=== PATIENT | female | born 1940 | race Caucasian/White ===

== ENCOUNTER 2020-03-24 10:46 | Emergency (ER) | payer MEDICARE, BC ==
--- NOTE | 2020-03-24 12:15 | CT ---
CT BRAIN WITHOUT CONTRAST: HISTORY: Headache and hypertension, altered mental status. COMPARISON: None. FINDINGS: There are changes of cortical atrophy and chronic small-vessel ischemic disease. The ventricular siz e is appropriate and the basilar cisterns are patent. No evidence of acute infarct, hemorrhage, midline shift, or abnormal extraaxial fluid collections are seen. The bony calvarium is intact. The visualized paranasal sinuses and mastoid air cells are wel l aerated. IMPRESSION: No CT evidence of acute intracranial process. POS: OFF
[2020-03-24 12:20] LABS: #Eosinphils 0.2 thou/uL (0.0-0.7); #Lymphocytes 1.4 thou/uL (1.20-3.40); #Monocytes 0.4 thou/uL (0.11-0.59); #Neutrophils 5.1 thou/uL (1.40-6.50); %Basophils 0.3 % (0.0-1.0); %Eosinophils 2.4 % (0.0-10.0); %Lymphocytes 19.8 % (21.0-51.0); %Monocytes 5.3 % (0.0-10.0); %Neutrophils 72.2 % (42.0-75.0); Hemoglobin 12.3 g/dL (12.0-16.0); Mean Corpuscular HGB CONC 32.1 g/dL (32.0-36.0); Mean Corpuscular Hemoglobin 27.9 pg (27.0-31.0); Mean Platelet Volume 8.6 fL (7.4-10.4); Platelet Count 299 thou/uL (130-400); RBC Distribution Width 16.4 % (11.5-14.5); Red Blood Cell (RBC) Count 4.39 mill/uL (4.20-5.40); White Blood Cell (WBC) Count 7.1 thou/uL (4.8-10.8)
[2020-03-24 12:41] LABS: ALT (SGPT) Less than 7 U/L (8-55); AST (SGOT) 12 U/L (5-34); Albumin 3.4 g/dL (3.4-4.8); Alkaline Phosphatase 30 U/L (40-110); Anion Gap 11 mmol/L (10-20); BUN (Urea Nitrogen) 10 mg/dL (9.8-20.1); Bilirubin, Total 0.6 mg/dL (0.2-1.2); Calc. Creatinine Clearance 0 mL/min (70-130); Calcium 9.1 mg/dL (7.8-10.44); Carbon Dioxide 28 mmol/L (23-31); Chloride 102 mmol/L (98-107); Estimated GFR-MDRD 67; Globulin 3.1 g/dL (2.4-3.5); Glucose 102 mg/dL (83-110); Magnesium 1.8 mg/dL (1.6-2.6); Potassium 3.9 mmol/L (3.5-5.1); Protein, Total 6.5 g/dL (6.0-8.3); Sodium 137 mmol/L (136-145)
[2020-03-24 13:00] LABS: Bilirubin Negative (Negative); Blood, Urine Negative (Negative); Clarity Clear (Clear); Glucose, Urine (Dipstick) Normal (Negative); Ketone, Urine Negative (Negative); Leukocyte Negative Leu/uL (Negative); Nitrite Negative (Negative); Protein, Urine (Dipstick) Negative (Neg-Trace); Specific Gravity, Urine 1.012 (1.002-1.036); Urobilinogen 3 mg/dL (Less than 2)
--- NOTE | 2020-03-26 14:14 | EKG ---
Test Reason : Blood Pressure : / mmHG Vent. Rate : 060 BPM Atrial Rate : 060 BPM P-R Int : 180 ms QRS Dur : 088 ms QT Int : 444 ms P-R-T Axes : 062 049 137 degrees QTc Int : 444 ms Normal sinus rhythm Nonspecific ST and T wave abnormality Abnormal ECG Confirmed by JOSE SMITH, JOSHUA ([id number]), greeting card editor VAZQUEZ MCCLAIN ([id number]) on 03/26/2020 2:13:54 PM Referred By: Confirmed By:JOSHUA GARCIA MD
== END 2020-03-24 14:05 | disposition home or self-care (01) ==
LOC: ERS 10:46
DX: G30.9 Alzheimer's disease, unspecified (principal); F02.80 Dementia in other diseases classified elsewhere, unspecified severity, without behavioral disturbance, psychotic disturbance, mood disturbance, and anxiety; I10 Essential (primary) hypertension
CPT/HCPCS: 36415; 70450; 80053; 81003; 83735; 84443; 85025; 93005

== ENCOUNTER 2020-03-28 12:14 | Inpatient (IN) | payer MEDICARE, BC ==
[2020-03-28] MEDS ORDERED: EPINEPHrine 1 MG/10 ML Abboject SYRINGE ONE ×3 (12:19→14:01)
[2020-03-28] MEDS ORDERED: Cefepime 2 GM VIAL ONE (12:26)
[2020-03-28] MEDS ORDERED: Vancomycin 1.5 GRAM/300 ML BAG 1.5 GM in Premix Bag 1 BAG IVPB SCH (12:45)
--- NOTE | 2020-03-28 12:47 | RAD ---
XR Chest 1 View Portable HISTORY: Respiratory failure COMPARISON: None FINDINGS: The heart size is normal. The aorta is tortuous. There is an endotracheal tube with tip just below t he level of the clavicular heads. The lungs are well expanded without focal areas of consolidation or pleural effusions. There is suggestion of a small right pneumothorax. Discussed over the telephone with ER physician Dr. Kerri Palmer at 12:43 PM
[2020-03-28 13:01] LABS: Actual Bicarbonate (HCO3a) 13.2 mEq/L (22-28); Analyzer IN Cardio ER; Base Excess (BEa) -18.6 mEq/L (-2.0 to +3.0); Calcium, Ionized (arterial) 1.09 mmol/L (1.12-1.30); Carboxyhemoglobin (COHb) 0.6 gm% (0.0-3.0); Hemoglobin (Hb) 10.8 g/dL (12.0-16.0); O2 Tension (PaO2), arterial 195.5 mmHg (> 70.0); Potassium - ABG Lab 4.13 mmol/L (3.70-5.30)
[2020-03-28 13:19] LABS: ALV-art Gradient 156.925 (0-20); CO2 Tension 60.3 mmHg (35.0-45.0); Puncture Site RRA; pH, Arterial 6.96 (7.35-7.45)
[2020-03-28 13:21] LABS: Hemoglobin 10.2 g/dL (12.0-16.0); Mean Corpuscular Hemoglobin 27.2 pg (27.0-31.0); Mean Corpuscular Volume 90.8 fL (78.0-98.0); Mean Platelet Volume 8.2 fL (7.4-10.4); Platelet Count 197 thou/uL (130-400); RBC Distribution Width 16.3 % (11.5-14.5); Red Blood Cell (RBC) Count 3.75 mill/uL (4.20-5.40); White Blood Cell (WBC) Count 20.6 thou/uL (4.8-10.8)
[2020-03-28] MEDS ORDERED: Norepinephrine 8 MG/0.9% NS 250 ML ONE (13:26)
[2020-03-28 13:44] LABS: ALT (SGPT) 110 U/L (8-55); AST (SGOT) 210 U/L (5-34); Albumin 2.4 g/dL (3.4-4.8); Alkaline Phosphatase 57 U/L (40-110); Anion Gap 28 mmol/L (10-20); BUN (Urea Nitrogen) 10 mg/dL (9.8-20.1); Bilirubin, Total 0.5 mg/dL (0.2-1.2); Calc. Creatinine Clearance 0 mL/min (70-130); Calcium 7.6 mg/dL (7.8-10.44); Carbon Dioxide 10 mmol/L (23-31); Chloride 109 mmol/L (98-107); Estimated GFR-MDRD 47; Globulin 2.4 g/dL (2.4-3.5); Glucose 292 mg/dL (83-110); Potassium 4.3 mmol/L (3.5-5.1); Protein, Total 4.8 g/dL (6.0-8.3); Sodium 143 mmol/L (136-145)
[2020-03-28 13:57] LABS: Band 21 % (5-11); Hypochromia SLIGHT = 6-15 cells (100X) (0-5/hpf); Lymphocytes 19 % (21-51); MDiff Complete? YES; Monocytes 1 % (0-10); Neutrophil 56 % (42-75); Ovalocytes SLIGHT = 2-5 cells (100X) (0-1/hpf); Platelet Morphology Comment Appears Adequate; Polychromasia SLIGHT = 2-3 cells (100X) (0-2/hpf); Reactive Lymphocytes 3 % (0-10); Target Cells SLIGHT = 2-5 cells (100X) (0-1/hpf)
[2020-03-28] MEDS ORDERED: EPINEPHrine 1 MG/ML AMP ONE (14:00)
[2020-03-28 14:06] LABS: CKMB 7.4 ng/mL (0-6.6)
[2020-03-28 14:18] LABS: SARS-CoV-2 NAA Rapid Test Not Detected (NotDetected)
[2020-03-28] MEDS ORDERED: Iopamidol-370 76% 500 ML 1 ML ONE (14:18)
[2020-03-28 14:27] LABS: Bilirubin Negative (Negative); Blood, Urine 2+ (Negative); Clarity Turbid (Clear); Glucose, Urine (Dipstick) Normal (Negative); Ketone, Urine Negative (Negative); Leukocyte Negative Leu/uL (Negative); Nitrite Negative (Negative); Protein, Urine (Dipstick) Negative (Neg-Trace); RBC/HPF 21-50 HPF (0-3); Specific Gravity, Urine 1.006 (1.002-1.036); Squamous Epithelial 0-3 HPF (0-3); Urobilinogen Normal mg/dL (Less than 2); WBC/HPF 0-3 HPF (0-3); pH, Urine 7.5 (5.0-9.0)
[2020-03-28 14:29] LABS: Bacteria/HPF 1+ HPF (None Seen)
[2020-03-28 14:36] LABS: Amphetamine Not Detected (NotDetected); Barbiturates Screen Not Detected (NotDetected); Benzodiazepine Screen Not Detected (NotDetected); Cocaine Metabolite Screen Not Detected (NotDetected); Medtox Control Line Valid? VALID (VALID); Medtox Reader # READER 1; Methadone Not Detected (NotDetected); Methamphetamine Not Detected (NotDetected); Opiate Screen Not Detected (NotDetected); Oxycodone Screen Not Detected (NotDetected); Phencyclidine (PCP) Not Detected (NotDetected); THC/Cannabinoid Screen Not Detected (NotDetected); Tricyclic Screen Not Detected (NotDetected)
--- NOTE | 2020-03-28 14:36 | CT ---
CTA Angio Chest W WO Con 03/28/2020 12:54 PM Indication: 79-year-old female status post CPR and altered mental status Technique: Multiple CTA images were obtained of the thorax with IV contrast. 3-D rendering: MIP anika nstructed images were created and reviewed. Comparison: No relevant prior studies available. Findings: Pulmonary arteries: Small suspected motion artifact is seen within the distal main pulmonary artery and proximal right main pulmonary artery. No definite pulmonary embolus is seen within the central segmental pulmonary arterial tree. Heart and Aorta: There are prominent consultations involving thoracic aorta and coronary arteries. Mediastinum:Patient is intubated with gastric catheter placement. Lungs:There are areas of subsegmental volume loss involving both lower lobes as well as portions of t he left upper lobe. Small 4 mm pulmonary nodule seen within the right upper lobe. Pleural space: There is a moderate to large right-sided hydropneumothorax. Upper Abdomen: Small amount of pneumobilia is seen within the left hepatic lobe. There is a prominen t endovascular graft in place involving the abdominal aorta with the proximal abdominal aorta measuring up to 6.3 cm. Osseous Structures: There are anterolateral right second through sixth rib fractures. There is a sof t tissue contusion overlying the anterolateral right chest wall near the right third and fourth rib fractures. There is a minimally displaced anterior lateral left fifth rib fracture. There is scattere d degenerative and osteoarthritic change present. There is gas present within the medullary space of the proximal humerus bilaterally possibly related to attempts at intraosseous vascular access plac ement. Soft tissues:No abnormality. Other findings:None. Impression: 1. No central or segmental pulmonary embolus. 2. Moderate to large right-sided hydropneumothorax. 3. Multiple right-sided rib fractures (anterolateral right second through sixth ribs). Minimally disp laced anterolateral left fifth rib fracture. 4. Nonspecific mild pneumobilia within the left hepatic lobe. 5. Findings called to Dr. Palmer at 2:30 PM on March 28, 2020
--- NOTE | 2020-03-28 14:51 | CT ---
CT CERVICAL SPINE 03/28/20 PROVIDED CLINICAL HISTORY: Altered mental status. 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 There is extensive multilevel cervical degenerative change. There is no evidence for fracture or traumatic subluxation. Partially v isualized right pneumothorax as noted on recently performed chest radiograph. There is no prevertebra l soft tissue swelling apparent. Partially visualized endotracheal and enteric catheters. IMPRESSION: 1. No evidence for fracture or traumatic subluxation. 2. Right pneumothorax. POS: AH
[2020-03-28 14:54] LABS: INR-International Normal Ratio 3.6; Prothrombin Time 35.8 sec (12.0-14.7)
--- NOTE | 2020-03-28 14:54 | CT ---
CT BRAIN WITHOUT CONTRAST: HISTORY: Altered mental status. FINDINGS: Comparison is made with the exam of 03/24/2020. There is a new large left hemispheric acute subdural hematoma measuring about 2 cm in thickness and c ausing a midline shift to the right of about 11 mm. The herniation appears to be subfalcine and unca l. There is edematous change in the cerebellar hemispheres, left greater than right. The bony cris rium is intact. IMPRESSION: Acute left subdural hematoma with subfalcine and uncal herniation. Discussed over the telephone with ER physician, Dr. Kerri Palmer, at 2:21 p.m. CODE CR POS: OFF
[2020-03-28 15:03] LABS: PTT 125.5 sec (22.9-36.1)
--- NOTE | 2020-03-28 15:12 | PDOC.HHP ---
Hospitalist HPI - History of Present Illness Found down History of Present Illness: This patient is a 79-year-old female who has no prior records at this facility other than an emergency room visit from 4 days ago. At that time the patient was brought in with what appeared to be some altered mental status or agitation. She has baseline dementia. The record indicates it was family members who brought her here. It was documented as a and daughter. It is not clear at this time whether that is accurate. She was evaluated in the emergency department with a work-up that included a CT scan of the head. There were no acute findings. The patient appeared to be at baseline and was subsequently discharged home. The story I get today is that the patient was found down by someone in her home. Ambulance was called. On their arrival the patient was asystole. I understand they performed 1 round of CPR and the patient was at that time in PEA and therefore they continued CPR. I am told she had 5 rounds of CPR including epinephrine injections in route to the emergency department. In the ER the patient actually had a pulse and had a substantially elevated blood pressure as high as 215/149 she had a pulse of 111 and a rectal temperature of 91.2. Subsequent blood pressure was 83/71. She has now been placed on epinephrine and Levophed drips. The patient is clearly unconscious and unable to give any additional history. The ER charge nurse was able to speak to the person listed as her contact and next of kin. Does not sound like they are actually related. Per the nurses report this person is hospitalized at another facility and sounded somewhat medicated. She indicated that she and the patient lives with another "roommate ". She raised concerns that there may have been some issues with the other roommate. Apparently there have been police on the scene. ED Course: Patient has been intubated. She is on pressors. Imaging work-up reveals a large 2 cm left subdural hematoma with substantial midline shift and herniation. There is also a hydropneumothorax on the right that is moderately large. She has fixed unresponsive pupils. She is on 2 different pressors. Latest blood pressure was 97/61 which is the best she has had in a while. Hospitalist ROS - Review of Systems ROS unobtainable: due to mental status - Medication Medications: Lisinopril 10 mg p.o. daily metoprolol succinate 25 mg 1 p.o. daily Plavix 75 mg daily Aspirin 81 mg p.o. daily Meloxicam 7.5 mg p.o. daily D3 1 p.o. daily B12 1000 mcg IM monthly Levothyroxine 100 mcg p.o. 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 Nonresponsive. Heart: RRR, no murmur, no gallops, no rubs, normal peripheral pulses Respiratory: CTAB, no wheezes, no rales, no ronchi, normal chest expansion Respiratory - other findings: Intubated, ventilated. Decreased breath sounds on the right. Gastrointestinal: soft, non-distended, normal bowel sounds, no palpable masses, no hepatomegaly, no splenomegaly Extremities: no cyanosis, no clubbing, no edema Extremities - other findings: Multiple areas of ecchymoses Skin: normal turgor Skin - other findings: Multiple ecchymoses on her extremities Psychiatric - other findings: Unresponsive to any external stimuli Hospitalist Results - Labs Result Diagrams: 03/28/20 12:58 03/28/20 12:58 Lab results: WBC 20.6 thou/uL (4.8-10.8) H 03/28/20 12:58 Hgb 10.2 g/dL (12.0-16.0) L 03/28/20 12:58 Hct 34.0 % (36.0-47.0) L 03/28/20 12:58 MCV 90.8 fL (78.0-98.0) 03/28/20 12:58 Plt Count 197 thou/uL (130-400) 03/28/20 12:58 Band Neuts % (Manual) 21 % (5-11) H 03/28/20 12:58 ABG pH 6.96 (7.35-7.45) L* 03/28/20 12:50 ABG pCO2 60.3 mmHg (35.0-45.0) H* 03/28/20 12:50 ABG pO2 195.5 mmHg (> 70.0) H 03/28/20 12:50 Sodium 143 mmol/L (136-145) 03/28/20 12:58 Potassium 4.3 mmol/L (3.5-5.1) 03/28/20 12:58 Chloride 109 mmol/L (98-107) H 03/28/20 12:58 Carbon Dioxide 10 mmol/L (23-31) L 03/28/20 12:58 BUN 10 mg/dL (9.8-20.1) 03/28/20 12:58 Creatinine 1.12 mg/dL (0.6-1.1) H 03/28/20 12:58 Glucose 292 mg/dL (83-110) H 03/28/20 12:58 Lactic Acid 15.3 mmol/L (0.5-2.2) H* 03/28/20 12:58 Calcium 7.6 mg/dL (7.8-10.44) L 03/28/20 12:58 Total Bilirubin 0.5 mg/dL (0.2-1.2) 03/28/20 12:58 AST 210 U/L (5-34) H 03/28/20 12:58 ALT 110 U/L (8-55) H 03/28/20 12:58 Alkaline Phosphatase 57 U/L (40-110) 03/28/20 12:58 CK-MB (CK-2) 7.4 ng/mL (0-6.6) H* 03/28/20 12:58 Troponin I 0.046 ng/mL (< 0.028) H 03/28/20 12:58 Serum Total Protein 4.8 g/dL (6.0-8.3) L 03/28/20 12:58 Albumin 2.4 g/dL (3.4-4.8) L 03/28/20 12:58 Urine Ketones Negative mg/dL (Negative) 03/28/20 12:30 Urine Blood 2+ (Negative) A 03/28/20 12:30 Urine Nitrite Negative (Negative) 03/28/20 12:30 Ur Leukocyte Esterase Negative Kosta/uL (Negative) 03/28/20 12:30 Urine RBC 21-50 HPF (0-3) A 03/28/20 12:30 Urine WBC 0-3 HPF (0-3) 03/28/20 12:30 Ur Squamous Epith Cells 0-3 HPF (0-3) 03/28/20 12:30 Urine Bacteria 1+ HPF (None Seen) A 03/28/20 12:30 - Radiology Interpretation CT scan - chest Status: image reviewed by me, report reviewed by me (Large hydropneumothorax on the right) CT scan - head Status: image reviewed by me, report reviewed by me (Large subdural hematoma on the left with midline shift and herniation present.) Hospitalist H&P A/P - Problem (1) Subdural hematoma Code(s): S06.5X9A - TRAUM SUBDR HEM W LOC OF UNSP DURATION, INIT Status: Acute (2) Brain herniation Code(s): G93.5 - COMPRESSION OF BRAIN Status: Acute (3) Coagulopathy Status: Acute (4) Hydropneumothorax Code(s): J94.8 - OTHER SPECIFIED PLEURAL CONDITIONS Status: Acute (5) Cardiac arrest Code(s): I46.9 - CARDIAC ARREST, CAUSE UNSPECIFIED Status: Acute (6) Hypertension Code(s): I10 - ESSENTIAL (PRIMARY) HYPERTENSION Status: Acute (7) Hyperlipidemia Code(s): E78.5 - HYPERLIPIDEMIA, UNSPECIFIED Status: Acute (8) Hypothyroidism Code(s): E03.9 - HYPOTHYROIDISM, UNSPECIFIED Status: Acute - Plan Plan: Unfortunately this lady appears to have suffered a terminal subdural hematoma resulting in significant midline shift and herniation. Will obtain neurosurgery consult. Patient suffered acute cardiac arrest as a result of this. She was ultimately resuscitated after prolonged course of chest compressions and ACLS protocol. The results of those interventions likely was this hydropneumothorax. Patient is currently intubated and on pressors and would be considered on maximum life support at this time. Given the terminal nature of her situation there is not appear to be any benefit in attempting chest tube placement at this time. Discussed this with the ER physician and pulmonary critical care and we are all in agreement. Patient will be admitted to the ICU. Continue on pressors and ventilator support for now. I have asked the palliative care team to assist with this situation and see if we cannot find family or appropriate surrogate decision makers. This point no further aggressive interventions will be considered as she is on maximal therapy now.
[2020-03-28] MEDS ORDERED: Norepinephrine 8 MG/0.9% NS 250 ML IVPB SCH (15:15)
[2020-03-28 16:47] VITALS: BMI 27.8
[2020-03-28 16:52] VITALS: TEMP 89.7
--- NOTE | 2020-03-29 05:44 | DIS ---
DATE OF ADMISSION: 03/28/2020 DATE OF DISCHARGE: 03/28/2020 DATE OF : 03/28/2020. DISCHARGE DIAGNOSES: 1. Subdural hematoma. 2. Coagulopathy. 3. Hydropneumothorax. 4. Cardiac arrest. 5. Hypertension. 6. Hyperlipidemia. 7. Hypothyroidism. HISTORY OF PRESENT ILLNESS: This patient is a 79-year-old female, who has some baseline dementia. Apparently, she was found down at home and ambulance was called. She was asystole on their arrival. They subsequently performed a round of CPR at which time she had some pulseless electrical activity. She had repeated rounds of CPR en route to the hospital with ACLS drugs including epinephrine x5 doses. In the emergency department, the patient was found to have a pulse with significantly elevated blood pressure. However, this was very brief following a dose of epinephrine. Subsequently, she developed significant hypotension and required pressors with epinephrine and Levophed. She was noted to have a large left subdural hematoma on CT scan with significant midline shift with subfalcine and uncal herniation. She also had a CT of the chest, which revealed no PE but [id number] right-sided hydropneumothorax, multiple right-sided rib fractures, minimally displaced. CT of the cervical spine only showed the right pneumothorax. LABORATORY DATA: Other labs were notable for a white count of 20,600. Hemoglobin was 10.2, INR was 3.6, PT 35.8, PTT 125.5, pH was 6.96, pCO2 was 60, bicarb 13, lactic acid was 15.3, glucose 292. AST is 210, ALT 110. Troponin was 0.046. There was mild hematuria on the urinalysis and drug screen was otherwise negative. SARS COVID screen was negative. HOSPITAL COURSE: The patient was unfortunately felt to likely have suffered a terminal event with this large subdural hematoma with severe midline shift and subsequent cardiac arrest. She was maintained on pressors. Attempts were made to contact her family. The nurse terminal supervisor was able to speak to the patient's daughter, who was hospitalized in [place], [place] and there was concern that she was actually medicated and not entirely coherent and the patient continued to have very minimal pulse and blood pressure and she was subsequently transferred to the ICU. At that time a pulse could not be palpated and rosas vick was called, the patient received another small dose of epinephrine and she had audible heart sounds, but no significant palpable pulses. It was felt that the patient was already on maximal life supportive measures. All reasonable measures were being done. Dr. Winters was able to speak to the patient's grandson and ultimately the patient lost pulse and pressure and was pronounced by Dr. Winters at 1607 hours. The [employer] has been notified and will come, make determinations regarding possible autopsy. Total time spent in critical care was 47 minutes. Job ID: [id number] [facility]
--- NOTE | 2020-03-29 08:26 | PQF ---
CLINICAL DOCUMENTATION CLARIFICATION FORM: Dear Dr. Jiang Date: 03/29/20 Please exercise your independent, professional judgment in responding to the clarification form. Clinical indicators are provided on the bottom of this form for your review. Please check appropriate box(es): [ ] Cerebral edema / Vasogenic edema [ x ] Compression of brain Due to: [x ] Intracranial hematoma [ ] Acute cerebral infarction [ ] Other diagnosis [ ] Unable to determine In addition, please specify: Present on Admission (POA): [x ] Yes [ ] No [ ] Unable to determine For continuity of documentation, please document condition throughout progress notes and discharge summary. Thank You. H&P: "SUBSTANTIAL MIDLINE SHIFT AND HERNIATION" BRAIN CT 03/28: "MIDLINE SHIFT TO THE RIGHT OF ABOUT 11 MM" RISKS: LARGE SUBDURAL HEMATOMA (DC SUMMARY) UNRESPONSIVENESS (ER NOTE) FIXED UNRESPONSIVE PUPILS (H&P- LAUREN) TREATMENT: BRAIN CT 03/28 NEUROSURGERY CONSULT 03/28 (PATIENT BEFORE SEEN) MECHANICAL VENTILATION (ER NOTE) CDS Signature: Shandra Ríos RN Phone #: [phone] Date: 03/29/20 This is a permanent part of the Medical Record [facility]
--- NOTE | 2020-03-29 08:47 | CON ---
DATE OF CONSULTATION: 03/28/2020 HISTORY OF PRESENT ILLNESS: Ms. Guaman is a 79-year-old female, found down at home. She presented to this hospital around lunchtime. She subsequently was found to have a very large left subdural with herniation. She apparently coded multiple times during transfer from home and coded in the elevator coming up to the ICU. Chest CT showed a large right-sided hydropneumothorax and multiple right rib fractures, presumably which were secondary to CPR. She was resuscitated with a mg of epinephrine after arrival in the Critical Care Unit. She is on an epinephrine drip. She is unable to give a history. She has never been hospitalized here before. PAST MEDICAL HISTORY: Unknown. FAMILY HISTORY: Unknown. SOCIAL HISTORY: She has a daughter who is in the hospital in [place]. Apparently, she was contacted, but according to the nurses, sounded medicated. Her grandson was coming into town from out of town and was contacted. I talked to him twice by phone. I lost him once because of signal issue with the cellphone. I have explained to him that the hospitalist and I and the staff who are taking care of her agree that there is nothing we can do for her at this point. Given her multiple cardiac arrests, drainage of her subdural hematoma would not increase her chances of meaningful survival. Also given that she was pressor dependent and coded in addition and in spite of aggressive care in the emergency department as well as having a very severe metabolic acidosis, it was felt that there is no way she could survive. He was agreeable to continue with current care measures, but no further chest compressions. Blood gas at 12:50 showed a pH of 6.96, CO2 of 60, and PO2 of 195. PHYSICAL EXAMINATION: CHEST: She did have respiratory effort, but other than that, she had no corneals , no gag. She had surprisingly equal breath sounds. NECK: No cervical lymphadenopathy. HEART: Very distant heart tones. ABDOMEN: Soft and nontender. EXTREMITIES: Thin, without edema. LABORATORY DATA: Sodium 143, potassium 4.3, chloride 109, bicarb 10, BUN 10, and creatinine 1.12. White count 20.6, hemoglobin 10.2, and platelets 197. INR was 3.6, PTT was 125. Liver enzymes were mildly elevated. Albumin was 2.4. COVID screen was negative. Drug screen was negative. IMPRESSION: Large subdural hematoma, presumably secondary to a fall at home. Unfortunately, it is impossible to know without someone providing a history of the events surrounding her being found down. My best guess is that her hemopneumothorax is related to her CPR, but I also cannot say that with certainty. Apparently, the daughter in [place] wanted her to have an autopsy. She was pronounced at 1607. Critical care time at bedside is 50 minutes Job ID: [id number] [facility]
--- NOTE | 2020-03-29 09:17 | PQF ---
CLINICAL DOCUMENTATION CLARIFICATION FORM: Dear : Sandoval Jiang Date / Time: 03/29/2020 Please exercise your independent, professional judgment in responding to the clarification form. Clinical indicators are provided on the bottom of this form for your review Please check appropriate box(es): [ x ] Hydropneumothorax is due to trauma [ ] Hydropneumothorax is not due to trauma [ ] Other diagnosis [ ] Unable to determine In addition, please specify: Present on Admission (POA): [ x ] Yes [ ] No [ ] Unable to determine To be completed by CDI/Coding staff for physician review: Present Clinical Indicators - Signs / Symptoms / Labs Results and Location in Medical Record [ x ] Patient was found down by someone in her home. Imaging work-up reveals a large 2-cm subdural hematoma with midline shift and herniation. There is also a hydropneumothorax on the right that is moderate large H&P [ x ] CT chest showed a large right-sided hydropneumothorax and multiple rib fracture, presumably which were secondary to CPR Consult 03/28 by Shiva Winters MD Present Risk Factors Results and Location in Medical Record [ x ] Traumatic subdural hematoma, brain herniation H&P [ x ] Found down unresponsive, slumped over in bed, CPR done for cardiac arrest ED provider notes Present Treatments Results and Location in Medical Record [ x ] CT chest 03/28 by Amrit Kwan MD Chest/thorax CTA CDS/Dental Claims Processor Signature: SJ1 Phone #: Date/ Time: This is a permanent part of the Medical Record [facility] [place]
--- NOTE | 2020-03-30 15:50 | EKG ---
Test Reason : POST CODE Blood Pressure : / mmHG Vent. Rate : 079 BPM Atrial Rate : 079 BPM P-R Int : 190 ms QRS Dur : 098 ms QT Int : 460 ms P-R-T Axes : 087 067 062 degrees QTc Int : 527 ms Normal sinus rhythm Prolonged QT Abnormal ECG Confirmed by ROCHELLE CLEMENTS DO ([id number]), film editor supervisor VAZQUEZ MCCLAIN ([id number]) on 03/30/2020 3:49:04 PM Referred By: STARR Confirmed By:ROCHELLE CLEMENTS DO
--- NOTE | 2020-04-05 08:22 | PQF ---
CLINICAL DOCUMENTATION CLARIFICATION FORM: Dear : Sandoval Jiang Date / Time: 04/05/2020 Please exercise your independent, professional judgment in responding to the clarification form. Clinical indicators are provided on the bottom of this form for your review Please check appropriate box(s): [ ] Septic Shock [ ] Shock Unspecified [ ] Hypotension only [ x ] Other diagnosis Subdural hematoma [ ] Unable to determine In addition, please specify: Present on Admission (POA): [ ] Yes [ ] No [ ] Unable to determine To be completed by CDI/Coding staff for physician review: Present Clinical Indicators - Signs / Symptoms / Labs Results and Location in Medical Record [ x ] ED: septic shock; cardiac arrest; hemopneumohorax; subdural hemorrhage. SBP 75-116 DBP 46-86 76/48, 86/68, 97/61. T 89.1 criticore. MAP: 57-171 ED Provider notes [ x ] Lactic acid is 15.3 on 03/28. Troponin I is 0.046 (H) on 03/28 Laboratory [ x ] Subsequently, she developed significant hypotension and required pressors with epinephrine and Levophed Discharge summary Present Risk Factors Results and Location in Medical Record [ x ] Subdural hemAtoma, hydropneumothorax, cardiac arrest, trauma Discharge summary Present Treatments Results and Location in Medical Record [ x ] IV Vasopressor 03/28 Medications [ x ] Mechanical ventilation Ventilators/clinical panels CDS/Geological Scout Signature: SJ1 Phone #: Date/Time: 04/05/2020 This is a permanent part of the Medical Record [facility]
== END 2020-03-28 21:11 | disposition expired | DRG 963 ==
LOC: ERS 12:14 → CCU 14:42
PROVIDERS: ADMIT Internal Medicine; ATTEND Internal Medicine
PROC: 5A1935Z Respiratory Ventilation, Less than 24 Consecutive Hours (ICD-10-PCS; principal; 2020-03-28)
PROC: 3E033XZ Introduction of Vasopressor into Peripheral Vein, Percutaneous Approach (ICD-10-PCS; 2020-03-28)
DX: S06.5X9A Traumatic subdural hemorrhage with loss of consciousness of unspecified duration, initial encounter (principal); G93.5 Compression of brain; S27.2XXA Traumatic hemopneumothorax, initial encounter; S22.41XA Multiple fractures of ribs, right side, initial encounter for closed fracture; D68.9 Coagulation defect, unspecified; E87.2 Acidosis; I46.9 Cardiac arrest, cause unspecified; I10 Essential (primary) hypertension; E78.5 Hyperlipidemia, unspecified; E03.9 Hypothyroidism, unspecified; I95.9 Hypotension, unspecified; Z96.649 Presence of unspecified artificial hip joint; Z96.659 Presence of unspecified artificial knee joint; W19.XXXA Unspecified fall, initial encounter; Z79.82 Long term (current) use of aspirin; Z79.02 Long term (current) use of antithrombotics/antiplatelets; Y92.009 Unspecified place in unspecified non-institutional (private) residence as the place of occurrence of the external cause
CPT/HCPCS: 36556; 36680; 51702; 70450; 71045; 71275; 72125; 80053; 80306; 81003; 81015; 82553; 82805; 83605; 84484; 85025; 85610; 85730; 87040; 87086; 92950; 93005; 94002; 94760; 96360; 96361; 96365; 96366; 99292; J0171; J0692; J3370; Q9967; U0002